=== PATIENT | female | born 1960 | race Caucasian/White ===

== ENCOUNTER → 2021-02-18 11:19 | Outpatient (BNVA) | payer BC, SELFPAY | PROVIDERS: PCP Family Medicine; Visit Provider Family Medicine | DX: G56.03 Carpal tunnel syndrome, bilateral upper limbs (principal); G43.711 Chronic migraine without aura, intractable, with status migrainosus; M79.7 Fibromyalgia | CPT/HCPCS: 80053; 82607; 84443; 85025 ==